=== PATIENT | female | born 1950 | race Caucasian/White ===

== ENCOUNTER 2022-06-29 12:55 | Outpatient (RCR) | payer MEDICARE, BC, SELFPAY | END 2022-07-06 10:29 | disposition home or self-care (01) | PROVIDERS: PCP Nurse Practitioner Family; Visit Provider Orthopaedic Surgery | DX: M16.11 Unilateral primary osteoarthritis, right hip (principal); M25.551 Pain in right hip; M25.651 Stiffness of right hip, not elsewhere classified; Z51.89 Encounter for other specified aftercare | CPT/HCPCS: 97110; 97162; 97535 ==

== ENCOUNTER 2022-07-15 13:20 | Outpatient (CLI) | payer MEDICARE, BC, SELFPAY | END 2022-07-15 13:21 | disposition home or self-care (01) | PROVIDERS: PCP Nurse Practitioner Family; Visit Provider Family Medicine | DX: Z99.3 Dependence on wheelchair (principal) | CPT/HCPCS: A0425; A0428 ==

== ENCOUNTER 2023-05-25 08:26 | Inpatient (IN) | payer MEDICARE, BC, SELFPAY ==
--- NOTE | 2023-05-24 12:12 | PC.SOCIAL ---
Discharge planning: Received call from pt today asking what skilled nursing she can go for short term rehab after her hip surgery scheduled for tomorrow. Pt had already discussed discharge plans and request for placement with delinquency prevention social worker previously. Pt states she wants to go to the [facility] or [facility] and is not interested in any other placement. If unable to go to these two facilities or if not covered by insurance, pt states she will go home and figure it out. Pt is aware delinquency prevention social worker is unable to make a reservation at a facility prior to surgery and will meet with pt following surgery.Pt has also been informed that it is likely she will not meet insurance criteria for coverage for a skilled nursing stay. structural iron worker to follow up as needed.
[2023-05-25] VITALS (19 sets, daily range): BP systolic 98–136; BP diastolic 54–79; PULSE 56–75; RESP 14–18; TEMP 35.4–37.1; O2SAT 85–98; BMI 32.4
[2023-05-25] MEDS: OXYCODONE (CR) 10 MG TAB.ER.12H PO (09:00)
[2023-05-25] MEDS: ACETAMINOPHEN 500 MG TABLET 1000 MG PO ×3 (09:00→20:29)
[2023-05-25] MEDS: CELECOXIB 200 MG CAPSULE PO (09:00)
--- NOTE | 2023-05-25 09:36 | PC.SOCIAL ---
Addendum entered by ISMAEL Lee 05/25/23 17:24: Met with pt and informed her there are no beds at [facility]. Pt states she is interested in placement at [facility] and is aware it will be private pay. Pt states she spoke with someone there who said it would be $5000 for 10 days. Pt is aware [facility] is assessing her information for admission and make a decision tomorrow. Also provided pt with written information on the [facility] option. Pt states she would like to know if both of these can accept her and then decide on placement. Provided pt with written information on the nursing homes in the area with the Department of Health ratings. She is not intersted in any other facilities being contacted regarding availability at this time. wind up worker to follow up as needed. Original Note: Discharge planning: Pt has requesting short term rehab placement at a facility in [place] or [place]. Called [facility] [place] and spoke with Swati in admissions who stated there is no availability for short term rehab. Called [facility] who states they do have availability and would require a $10,000 deposit for private pay with a daily rate estimate of $550/day. Left message for [facility] requesting information on availability. wind up worker to follow up as needed.
[2023-05-25] MEDS: LACTATED RINGERS 1000 ML 1,000 ML 100 ML IV ×2 (09:54→10:40)
[2023-05-25] MEDS: MIDAZOLAM HCL 1 MG/ML inj IVP (10:15)
[2023-05-25] MEDS: fentaNYL 100 MCG/2 ML inj IVP (10:15)
--- NOTE | 2023-05-25 10:23 | SUR.PREOP ---
TIME?OUT:?1012 PT/RN/MDA?VERIFICATION?OF?SURGICAL?SITE,?PROCEDURE,?AND?CONSENT OBTAINED?PRIOR?TO?INVASIVE?PROCEDURE.
--- NOTE | 2023-05-25 10:30 | XR_ITS ---
Patient: MARISSA SPRINGER Facility:?[facility] Patient ID:?[id number] Site Patient ID:?[id number]. Site :?[id number] Study:?XRay-Hip Left 2V-05/25/2023 12:08:32 PM Ordering Physician:VALENTÍN Final Report: Indication: Left hip replacement Technique: Two intraoperative radiographs were obtained of the left hip Comparison: None Findings/impression: Intraoperative radiographs were obtained of the left hip for a left total hip arthroplasty. There is no evidence of hardware related complication. Partially visualized right total hip arthroplasty. Dictated by Noman Gomez MD @ 05/25/2023 4:47:15 PM Signed by:?Noman Gomez MD @05/25/2023 4:47:15 PM (Electronic Signature)
[2023-05-25] MEDS: TRANEXAMIC ACID 100 MG/ML INJ 1000 MG IV (10:40)
[2023-05-25] MEDS: CEFAZOLIN 2 GM INJ IVP (10:40)
--- NOTE | 2023-05-25 10:47 | W.PM.NB ---
Nerve Block Nerve Block Time Seen by Provider: 10:17 Date Seen: 05/25/23 Type of block requested by surgeon for post-operative analgesia: BRIGITTE/LFCN Side: left Time out performed: Yes Verification of patient name: Yes Verification of date of : Yes Site marking: site marked Name of person performing procedure: Huseyin Continuous monitoring Was continuous monitoring of O2 sat, B/P, monitoring analyst, recorded every 15 minutes?: Yes Procedure Checklist: sterile prep, needles and gloves Ultrasound guided. Images saved: Yes Medications given in 5ml increments after negative aspiration: Ropivicaine %: 0.5 mL: 30 Needle gauge: 20 Decadron (mg): 10 Precedex (mcg): 25 Patient tolerated procedure well: Yes Additional comments: Needle noted below psoas tendon needle noted adjacent to LFCN Block Charges Block Charge (with Pro Fee): Other Periph Nerve Block Use of Ultrasound Machine for Block: Yes- US Guidance/pain block
--- NOTE | 2023-05-25 10:48 | W.ANESCHARGE ---
Anesthesia Charges Start Date/Time Anesthesia Start Date: 05/25/23 Anesthesia Start Time: 10:21 Stop Date/Time Anesthesia Stop Date: 05/25/23 Anesthesia Stop Time: 12:44 Summary Extremes of Age - Over 70 or under 1: MDA
--- NOTE | 2023-05-25 11:54 | XR_ITS ---
Patient: MARISSA SPRINGER Facility:?[facility] Patient ID:?[id number] Site Patient ID:?[id number]. Site :?[id number] Study:?XRay-Hip post op-05/25/2023 1:05:35 PM Ordering Physician:VALENTÍN Final Report: Indication: Postoperative examination, left hip Technique: Frontal view of the bilateral hips and lateral view left hip Comparison: Same day intraoperative radiographs Findings/impression: Postsurgical changes of left total hip arthroplasty without evidence of hardware related complication. Expected gas within the operative bed and soft tissues of the left hip and lower extremity. Postsurgical changes of right total hip arthroplasty, unremarkable in appearance. Dictated by Noman Gomez MD @ 05/25/2023 6:01:15 PM Signed by:?Noman Gomez MD @05/25/2023 6:01:15 PM (Electronic Signature)
--- NOTE | 2023-05-25 11:58 | P.ORPRC_ITS ---
Procedure Note Date of procedure: 05/25/23 Procedure: PREOPERATIVE DIAGNOSIS: Left hip osteoarthritis POSTOPERATIVE DIAGNOSIS: Left hip osteoarthritis NAME OF OPERATION: Left total hip arthroplasty SURGEON: Kenneth Travis MD MANAGER SYSTEMS: Nydia Nina PA-C, MEG Fitzgerald IMPLANTS: 1. [employer] [place] # 52 sector ingrowth cup 2. 36 x 52 +4 neutral polyethylene 3. Actis # 5 standard collared ingrowth stem 4. 36 + 1.5 ceramic femoral head ANESTHESIA: General ESTIMATED BLOOD LOSS: 500 cc COMPLICATIONS: None SPECIMENS: None DRAINS: None PREOPERATIVE ANTIBIOTICS: Ancef 2 grams INDICATIONS: The patient is a 72-year-old with a longstanding history of sev ere, unrelenting left hip pain secondary to end-stage left hip osteoarthritis. Despite appropriate nonoperative management, including activity modification, use of an assist device, anti-inflammatories, rave-qcn-[id number] pain medication, physical therapy and injections, they continue to have pain and disability. Operative intervention was offered. The risks, benefits and expected outcomes were discussed in detail. These included but were not limited to: Infection, bleeding, injury to blood vessel or nerve, venous thromboembolism. All questions were answered to their satisfaction. Use of an information services assistant was necessary throughout the case for patient positioning and safety, soft tissue retraction and closure. PROCEDURE: The patient was placed supine on the [place] table. General anesthesia was administered. The information services assistant made sure the patient was properly positioned. The left hip was prepped and draped in the usual sterile fashion. The image intensifier was brought in for a perfect AP pelvis and a perfect double tear drop AP view of each hip which were used for intraoperative templating with our fluoroscopic guide. An oblique incision was made 3 cm distal and 3 cm lateral to the anterior superior iliac spine. The information services assistant retracted the soft tissues to protect them. Subcutaneous dissection was taken with electrocautery to the superficial fascia. The fascia was divided in line with the incision. Blunt dissection was carried medially to the tensor fascia galilea and sartorius interval. Deep dissection was carried with electrocautery. The circumflex vessels were cau terized and divided. The capsule was exposed and then divided in a T-fashion, tagged with #1 Ethibond sutures. Retractors were placed in the joint, held by the information services assistant. The corkscrew was placed in the femoral head. The neck cut was made in the subcapital region. We made a second neck cut more distal. The napkin ring of bone was removed. The femoral head was removed intact. Acetabular retractors were placed, held by the information services assistant. The labrum was sharply debrided. The capsule was released. The 43 mm reamer was used to the true medial wall. We then enlarged in 2 mm increments using the image intensifier for our reamer placement. We impacted the cup which had excellent purchase. We placed the polyethylene. Attention was then turned to the proximal femur. The limb was placed in 140 degrees of external rotation, maximum extension and adduction. A significant amount of time was spent releasing the capsule to allow us to deliver the femur into the wound and complete the femoral side safely. Retractors were held by the information services assistant throughout the femoral preparation. The box printer and canal finder were used. Broaches were used to a stable size. The calcar reamer was used. Trial components were placed. The hip was reduced and was found to be stable with appropriate soft tissue tension. Length and offset had been nicely restored using the image intensifier and our fluoroscopic guide. Trial components were removed. The stem was impacted. We placed the femoral head. Again, the hip was reduced and was found to be stable with appropriate soft tissue tension. Length and offset had been nicely restored. The information services assistant did a three minute dilute Betadine solution soak. The information services assistant irrigated the wound with 3 liters of normal saline via pulse lavage. The as sistant repaired the anterior capsule with a #1 Vicryl and our previously placed Ethibond sutures. The information services assistant closed the fascia over the tensor fascia galilea with a #1 PDO Stratafix, subcutaneous tissues with 2-0 Vicryl, skin with a running 3-0 Stratafix and glue. A dry dressing was applied by the information services assistant. Sponge and needle counts were correct x 2. The patient tolerated the procedure well; there were no apparent complications. They were awakened and extubated in the operating room, sent to the Post-Anesthesia Care Unit in satisfactory condition. PLAN: 1. The patient will be mobilized with physical therapy, weight-bearing as tolerates 2. Xarelto x 5 days then aspirin x 30 days will be used for DVT prophylaxis 3. The patient will be discharged once medically appropriate
--- NOTE | 2023-05-25 12:43 | W.ANESCHARGE ---
Anesthesia Charges Start Date/Time Anesthesia Start Date: 05/25/23 Anesthesia Start Time: 10:21 Stop Date/Time Anesthesia Stop Date: 05/25/23 Anesthesia Stop Time: 12:44
[2023-05-25] MEDS: HYDROmorphone 0.5 mg/0.5 ml inj IVP (14:27)
[2023-05-25] MEDS: OXYCODONE 5 MG TABLET PO (14:27)
--- NOTE | 2023-05-25 15:07 | P.IMCN_ITS ---
Date of Consult Patient: Liudmila Patient Consult date: 05/25/23 Requesting Physician: Orthopedics Primary Care Provider: Amada Pedersen CNP Consult Narrative Narrative: Marcy Cifuentes is a 72 year old female admitted to the hospital for left total hip arthroplasty. Procedure performed today by Dr. Travis. He requests consultation for management of medical problems. There were no operative complications. Estimated blood loss 500 mL. Currently she reports she is having moderate discomfort in her left hip but otherwise feels fine. No nausea or dyspnea. She has a mild sore throat. Had general anesthesia. Preoperatively she reports she is generally doing well. No recent illness or injury. Preop physical did not identify any barbara op medical concerns. July of 2022 she had right hip arthroplasty. She reports this was very difficult for her. She had severe postoperative pain. She also had difficulty with mobility and had 3 weeks in a residential after surgery. She lives at home in a town home that has no stairs. She is and lives alone. She has sleep apnea and brought her home CPAP. Review of Systems Narrative: No other concerns except as noted above. No recent illness or injury [facility] Medical History (Updated 05/25/23 @ 15:35 by Jeremiah Huber MD) Lymphedema, not elsewhere classified ?I89.0 - Lymphedema, not elsewhere classified (ICD-10) Acute pyelonephritis ?N10 - Acute pyelonephritis (ICD-10) Hydronephrosis with urinary obstruction due to ureteral calculus ?N13.2 - Hydronephrosis with renal and ureteral calculous obstruction (ICD- 10) Sepsis syndrome Exudative age-related macular degeneration, left eye, with active choroidal neovascularization ?H35.3221 - Exudative age-related macular degeneration, left eye, with active choroidal neovascularization (ICD-10) Malignant neoplasm of right breast ?C50.911 - Malignant neoplasm of unspecified site of right female breast (ICD-10) Chronic rhinitis ?J31.0 - Chronic rhinitis (ICD-10) Kidney stone ?N20.0 - Calculus of kidney (ICD-10) Essential (primary) hypertension ?I10 - Essential (primary) hypertension (ICD-10) Macular degeneration ?H35.30 - Unspecified macular degeneration (ICD-10) Lymphedema ?I89.0 - Lymphedema, not elsewhere classified (ICD-10) Breast cancer ?C50.919 - Malignant neoplasm of unspecified site of unspecified female breast (ICD-10) Anxiety ?F41.9 - Anxiety disorder, unspecified (ICD-10) Depression ?F32.A - Depression, unspecified (ICD-10) Sleep apnea ?G47.30 - Sleep apnea, unspecified (ICD-10) Surgical History (Updated 05/25/23 @ 15:35 by Jeremiah Huber MD) Hx of lithotripsy ?Z98.890 - Other specified postprocedural states (ICD-10) H/O cataract removal with insertion of prosthetic lens ?Z98.49 - Cataract extraction status, unspecified eye (ICD-10) ?Z96.1 - Presence of intraocular lens (ICD-10) History of right hip replacement (07/14/22) ?Z96.641 - Presence of right artificial hip joint (ICD-10) Hx of dilation and curettage ?Z98.890 - Other specified postprocedural states (ICD-10) Hx of tubal ligation ?Z98.51 - Tubal ligation status (ICD-10) S/P breast lumpectomy (05/12/17) ?Z98.890 - Other specified postprocedural states (ICD-10) S/P right knee arthroscopy (07/11/09) ?Z98.890 - Other specified postprocedural states (ICD-10) Family History Father Stroke Sister Breast cancer Social History Highest level of school completed/degree received: high school graduate Smoking Status: Never smoker Do you use any of these nicotine containing products: None Second hand tobacco smoke exposure: No How often do you have a drink containing alcohol: monthly or less Alcohol type: wine and hard liquor How many standard drinks containing alcohol do you have on a typical day: 1 or 2 How often do you have six or more drinks on one occasion: Never AUDIT-C Alcohol total score: 1 Non-prescribed substance use: denies use Caffeine: No service: No Meds Home Medications and Allergies Home Medications Medication Instructions Recorded Confirmed Type calcium carbonate 500 mg calcium 500 mg PO DAILY 02/05/22 04/05/23 History (1,250 mg) tablet fluticasone propionate 50 2 spray intranasal DAILY 02/05/22 04/05/23 History mcg/actuation nasal spray,suspension multivitamin (Multiple Vitamins 1 tab PO QAM 02/05/22 04/05/23 History tablet) omeprazole 20 mg capsule,delayed 20 mg PO DAILY 02/05/22 04/05/23 History release albuterol sulfate 90 mcg/actuation 2 puff inhalation Q4H PRN wheezing 06/24/22 04/05/23 History aerosol inhaler alprazolam 0.25 mg tablet 0.25 mg PO BID PRN 06/24/22 05/25/23 History citalopram 40 mg tablet 40 mg PO DAILY 06/24/22 05/25/23 History hydrochlorothiazide 25 mg tablet 25 mg PO QDAY PRN 01/13/23 04/05/23 History turmeric root extract 1,053 mg 1,076 mg PO ONCE 01/13/23 04/05/23 History tablet gabapentin 300 mg capsule 300 mg PO QPM 04/05/23 04/05/23 History Allergies Allergy/AdvReac Type Severity Reaction Status Date / Time erythromycin base Allergy Mild Rash Verified 05/25/23 09:55 amoxicillin Allergy Rash Verified 05/25/23 09:55 latex Allergy Rash Verified 05/25/23 09:55 Exam Narrative: Exam Narrative: She is alert and appears in no obvious distress. Eyes normal. Oropharynx with small airway. Neck is supple without mass or adenopathy or tenderness. Respirations are clear to auscultation. No wheezing rales or rhonchi. Cardiovascular: S1, S2, regular rate and rhythm. No murmur gallop or rub. Abdomen: Bowel sounds active. Abdomen is soft without tenderness or mass. Hip incision without obvious bruising swelling or erythema. Extremities with 1+ edema and support hose in place. She moves feet and ankles well bilaterally Const: Vital Signs, click to edit/add: Vital Signs - 24 hr 05/25/23 08:45 05/25/23 12:40 05/25/23 12:45 Temperature 98.8 F 97.9 F Pulse Rate 75 67 68 Respiratory Rate 16 14 16 Blood Pressure 136/67 116/63 116/63 Pulse Oximetry 93 85 L 95 Oxygen Delivery Me thod Room Air Nasal Cannula Non Rebreather Mas k Oxygen Flow Rate 6 10 Fraction of Inspir ed Oxygen 100 100 05/25/23 12:50 05/25/23 12:55 05/25/23 13:00 Temperature Pulse Rate 67 64 64 Respiratory Rate 16 16 16 Blood Pressure 122/79 130/57 L 123/67 Pulse Oximetry 94 97 98 Oxygen Delivery Me thod Non Rebreather Mas k Non Rebreather Mas k Non Rebreather Mas k Oxygen Flow Rate 10 6 4 Fraction of Inspir ed Oxygen 100 100 100 05/25/23 13:05 05/25/23 13:10 05/25/23 13:20 Temperature 98.0 F 95.8 F L Pulse Rate 63 61 59 L Respiratory Rate 14 16 18 Blood Pressure 128/60 125/63 128/63 Pulse Oximetry 94 98 94 Oxygen Delivery Me thod Non Rebreather Mas k Room Air Room Air Oxygen Flow Rate 2 Fraction of Inspir ed Oxygen 100 05/25/23 13:30 05/25/23 13:45 Temperature Pulse Rate 56 L 59 L Respiratory Rate 18 18 Blood Pressure 124/66 126/60 Pulse Oximetry 95 94 Oxygen Delivery Me thod Room Air Room Air Oxygen Flow Rate Fraction of Inspir ed Oxygen Documenting provider has reviewed patient's vital signs: yes Assessment and Plan Assessment and plan (1) Status post total hip replacement, left: Problem comment: 05/25/[address] Travis. No operative complications. Right hip surgery in July of 2022 associated with problems with pain control and immobility requiring snf facility placement. Patient currently planning on snf facility placement Status: Acute (2) Sleep apnea: Problem comment: Home CPAP Status: Acute (3) Lymphedema, not elsewhere classified: Problem comment: Support hose. Status: Acute Plan Patient is admitted to the hospital for left hip replacement and postoperative care. Anticipate routine postoperative care, pain control and rehab. Possible need for snf facility placement for ongoing rehab. Anticipate problems with pain control. Use CPAP for sleep apnea. Total Time Spent Total Time Spent: Total time spent today is 45 minutes, 30 minutes in coordination care and discussing with patient family and other providers ongoing evaluation management
--- NOTE | 2023-05-25 15:33 | PC.NURSE ---
Nursing Care Hours: [id number] Pt arrived from PACU oriented and drowsy. VSS. Pt c/o feeling uncomfortable from hip down bilat. Attempt to reposition with minimal relief. Pt rubbing bilat legs, attempting to move legs around for comfort. Pain meds given PO and IV. Up to chair with PT, tolerated well. Tolerating jello and crackers. CPAP from home in room. IV patent. TEDs on. Bandage CDI, pedal pulses present. Cap refill 5 sec, and digits cool to touch. IS 2000ml.
[2023-05-25] MEDS: CEFAZOLIN 2 GM in 0.9 % SODIUM CHLORIDE Mini-bag 100 ML IVPB (17:28)
--- NOTE | 2023-05-25 18:49 | PC.NURSE ---
End of shift: [id number] The patient is cooperative and pleasant. Dressing is CDI. Lungs clear... the patient reports moderate pain in her hip @ 5/10 consistently. Scheduled Tylenol was given. Up to BR 1x w/ GB and 4 wheeled walker only voided 75 cc. The patient reports that she normally has a poor PO fluid intake. LR infusing @ 75. Plans to go to SNF for rehab. The patient did this with her other hip that got replaced. Call light within reach. Report given to Martha Hearn RN BSN
[2023-05-25] MEDS: GABAPENTIN 300 MG CAPSULE PO (20:29)
[2023-05-25] MEDS: SENNOSIDES 1 TAB TABLET 2 TAB PO (20:29)
[2023-05-26 03:00] VITALS: BP 117/50; PULSE 72; RESP 16; TEMP 36.5; O2SAT 93
[2023-05-26] MEDS: CEFAZOLIN 2 GM in 0.9 % SODIUM CHLORIDE Mini-bag 100 ML IVPB (03:11)
[2023-05-26] MEDS: ACETAMINOPHEN 500 MG TABLET 1000 MG PO ×2 (03:11→10:35)
--- NOTE | 2023-05-26 06:02 | PC.NURSE ---
End of shift [id number]: Alert and oriented. Pain to left hip well managed with current scheduled tylenol and ice pack. Voiding well, IV saline locked at 0300. Transfers and ambulated with SBA, walker and gait belt.
[2023-05-26 06:37] LABS: Basophils Absolute Auto 0.01 K/uL (0.00-0.30); Basophils Percent Auto 0.1 % (0.0-3.0); Eosinophils Absolute Auto 0.02 K/uL (0.00-0.50); Eosinophils Percent Auto 0.2 % (0.0-7.0); Hematocrit 29.3 % (33.0-51.0); Hemoglobin* 9.7 gm/dL (12.0-16.0); Immature Granulocytes Abs Auto 0.05 K/uL (0.00-0.30); Immature Granulocytes Pct Auto 0.5 %; Lymphocytes Percent Auto 10.2 % (20-44); Mean Corpuscular HGB Conc 33 gm/dL (32-36); Mean Corpuscular Hemoglobin 31 pg (26-34); Mean Corpuscular Volume 95 fL (80-100); Platelet Count* 229 K/uL (140-440); RDW Coefficient of Variation % 12.8 % (11.5-15.5); Red Blood Count 3.09 m/uL (4.00-5.20); White Blood Count* 10.53 K/uL (4.50-11.00)
[2023-05-26 06:39] LABS: Slide Review Reflex No
[2023-05-26 07:00] VITALS: BP 106/54; PULSE 65; RESP 16; TEMP 36.5; O2SAT 100
[2023-05-26 07:04] LABS: Potassium* 4.3 mmol/L (3.6-5.1); Sodium* 138 mmol/L (135-149)
[2023-05-26 07:07] LABS: Creatinine* 0.6 mg/dL (0.5-1.5); Est. Creatinine Clearance* 42.62; Estimated Glomerular Filt Rate 94 ml/min
[2023-05-26 07:08] LABS: Blood Urea Nitrogen* 21 mg/dL (7-30)
--- NOTE | 2023-05-26 07:51 | PM.ORPN ---
Subjective Subjective Time Seen by Provider: 07:51 Date Seen: 05/26/23 Principal diagnosis: Status post left hip replacement Interval history: Patient is rather comfortable in the recliner at rest. She denies nausea, vomiting, shortness of breath. She is planning on discharging to [facility] today, social work administrator is working on this. She is planning on staying at [facility] for 10 days. Ortho Exam Narrative Exam Narrative: Alert and oriented x3. Patient is in no acute distress. Converses without labored breathing. Hearing is grossly intact. Ambulates with a walker. Examination of the left hip shows ecchymosis is present. Dressing is clean, dry, intact. No erythema or drainage or sign of infection. Thigh soft. Hip is soft. Bilateral calves are soft and nontender. Pedal pulse, dorsalis pedis is faint. Large foot and ankle. CMS intact left lower extremity. Quad strength tested in supine position in recliner is strong. Good quad activation. Const Vital Signs, click to edit/add: Vital Signs - 24 hr 05/25/23 08:45 05/25/23 12:40 05/25/23 12:45 Temperature 98.8 F 97.9 F Pulse Rate 75 67 68 Pulse Rate [Right Pulse Oximeter] Respiratory Rate 16 14 16 Blood Pressure 136/67 116/63 116/63 Blood Pressure [Left Arm] Pulse Oximetry 93 85 L 95 Oxygen Delivery Method Room Air Nasal Cannula Non Rebreather Mask Oxygen Flow Rate 6 10 Fraction of Inspired Oxygen 100 100 05/25/23 12:50 05/25/23 12:55 05/25/23 13:00 Temperature Pulse Rate 67 64 64 Pulse Rate [Right Pulse Oximeter] Respiratory Rate 16 16 16 Blood Pressure 122/79 130/57 L 123/67 Blood Pressure [Left Arm] Pulse Oximetry 94 97 98 Oxygen Delivery Method Non Rebreather Mask Non Rebreather Mask Non Rebreather Mask Oxygen Flow Rate 10 6 4 Fraction of Inspired Oxygen 100 100 100 05/25/23 13:05 05/25/23 13:10 05/25/23 13:20 Temperature 98.0 F 95.8 F L Pulse Rate 63 61 59 L Pulse Rate [Right Pulse Oximeter] Respiratory Rate 14 16 18 Blood Pressure 128/60 125/63 128/63 Blood Pressure [Left Arm] Pulse Oximetry 94 98 94 Oxygen Delivery Method Non Rebreather Mask Room Air Room Air Oxygen Flow Rate 2 Fraction of Inspired Oxygen 100 05/25/23 13:30 05/25/23 13:45 05/25/23 14:00 Temperature 96.8 F L Pulse Rate 56 L 59 L 64 Pulse Rate [Right Pulse Oximeter] Respiratory Rate 18 18 18 Blood Pressure 124/66 126/60 116/73 Blood Pressure [Left Arm] Pulse Oximetry 95 94 93 Oxygen Delivery Method Room Air Room Air Room Air Oxygen Flow Rate Fraction of Inspired Oxygen 05/25/23 14:15 05/25/23 15:31 05/25/23 16:00 Temperature 98.0 F Pulse Rate 62 65 Pulse Rate [Right Pulse Oximeter] Respiratory Rate 18 16 Blood Pressure 123/71 112/54 L 128/58 L Blood Pressure [Left Arm] Pulse Oximetry 93 93 Oxygen Delivery Method Room Air Oxygen Flow Rate Fraction of Inspired Oxygen 05/25/23 17:00 05/25/23 18:30 05/25/23 19:50 Temperature 98.6 F 98.2 F 98.3 F Pulse Rate 70 74 72 Pulse Rate [Right Pulse Oximeter] Respiratory Rate 16 16 18 Blood Pressure 98/69 115/56 L 118/58 L Blood Pressure [Left Arm] Pulse Oximetry 95 97 97 Oxygen Delivery Method Room Air Oxygen Flow Rate Fraction of Inspired Oxygen 05/25/23 23:00 05/26/23 03:00 05/26/23 07:00 Temperature 98.4 F 97.7 F Pulse Rate Pulse Rate [Right Pulse Oximeter] 68 72 65 Respiratory Rate 18 16 16 Blood Pressure Blood Pressure [Left Arm] 120/56 L 117/50 L Pulse Oximetry 97 93 Oxygen Delivery Method Room Air Room Air Oxygen Flow Rate Fraction of Inspired Oxygen 05/26/23 07:00 Temperature 97.7 F Pulse Rate Pulse Rate [Right Pulse Oximeter] 65 Respiratory Rate 16 Blood Pressure Blood Pressure [Left Arm] 106/54 L Pulse Oximetry 100 Oxygen Delivery Method Room Air Oxygen Flow Rate Fraction of Inspired Oxygen Assessment and Plan Assessment and plan (1) Status post left hip replacement: Problem details: Plan for discharge is today to group home facility, possibly [facility], if they meet discharge criteria. Special Duty Nurse will hear back from [facility] today per social work administrator note. DVT prophylaxis includes Xarelto 10 mg daily for total of 5 days, then aspirin 81 mg twice daily for 30 days, Kuldeep stockings x1 month may remove for 1 hr per day, frequent ambulation Remove dressing 1 week. Observe wound and phone Orthopedics with any questions or concerns Use Ice on operative hip unrestricted. Return to clinic in 2 weeks in [place] with PA for a wound check Return to clinic in 6 weeks with surgeon Minimize narcotic use. Wean off and discontinue soon as possible. Activities as tolerated. No strenuous activity. Attend OT and PT daily at group home facility, then outpt PT Status: Acute
[2023-05-26] MEDS: MULTIVITAMIN/MINERALS 1 TABLET 1 TAB PO (08:34)
[2023-05-26] MEDS: CITALOPRAM HYDROBROMIDE 20 MG TABLET 40 MG PO (08:34)
[2023-05-26] MEDS: RIVAROXABAN 10 MG TABLET PO (08:34)
[2023-05-26] MEDS: OXYCODONE 5 MG TABLET PO ×2 (08:34→11:54)
[2023-05-26] MEDS: OMEPRAZOLE 20 MG CAPSULE DR PO (08:34)
[2023-05-26] MEDS: SENNOSIDES 1 TAB TABLET 2 TAB PO (08:34)
[2023-05-26] MEDS: CALCIUM CARBONATE 500 MG TABLET PO (08:35)
--- NOTE | 2023-05-26 10:14 | P.IMPN_ITS ---
Progress Note: A&P Assessment and plan (1) Status post left hip replacement: Problem details: 05/25/[address] Travis. Plan for discharge is today to long-term facility, possibly [facility]. DVT prophylaxis includes Xarelto 10 mg daily for total of 5 days, then aspirin 81 mg twice daily for 30 days, Kuldeep stockings x1 month may remove for 1 hr per day, frequent ambulation Remove dressing 1 week. Observe wound and phone Orthopedics with any questions or concerns Use Ice on operative hip unrestricted. Return to clinic in 2 weeks in [place] with PA for a wound check Return to clinic in 6 weeks with surgeon Minimize narcotic use. Wean off and discontinue soon as possible. Activities as tolerated. No strenuous activity. Attend OT and PT daily at long-term facility, then outpt PT Status: Acute (2) Essential (primary) hypertension: Problem details: - patient on HCTZ as an outpatient, holding this given mild postoperative hypotension, will restart upon discharge with hold perameters. Status: Chronic Subjective Time Seen by Provider: 09:25 Date Seen: 05/26/23 Interval history: Marcy states the block for her left hip this time worked better than the block for her right hip last time. She says it's already worn off, but her pain is okay at present. She is hoping to go to SNF for rehab. Exam Narrative: Exam Narrative: General: No acute distress. Awake, alert, oriented x3. No pallor. No jaundice. Oropharynx: Clear. Mucous membranes moist. Cardiovascular: Regular rate and rhythm. No murmurs, gallops, or rubs. Respiratory: Clear to auscultation bilaterally. No wheezes or crackles. Extremities: Left hip bandage is clean, dry, and intact. Const: Vital Signs, click to edit/add: Vital Signs - 24 hr 05/25/23 12:40 05/25/23 12:45 05/25/23 12:50 Temperature 97.9 F Pulse Rate 67 68 67 Pulse Rate [Right Pulse Oximeter] Respiratory Rate 14 16 16 Blood Pressure 116/63 116/63 122/79 Blood Pressure [Le ft Arm] Pulse Oximetry 85 L 95 94 Oxygen Delivery Me thod Nasal Cannula Non Rebreather Mas k Non Rebreather Mas k Oxygen Flow Rate 6 10 10 Fraction of Inspir ed Oxygen 100 100 100 05/25/23 12:55 05/25/23 13:00 05/25/23 13:05 Temperature Pulse Rate 64 64 63 Pulse Rate [Right Pulse Oximeter] Respiratory Rate 16 16 14 Blood Pressure 130/57 L 123/67 128/60 Blood Pressure [Le ft Arm] Pulse Oximetry 97 98 94 Oxygen Delivery Me thod Non Rebreather Mas k Non Rebreather Mas k Non Rebreather Mas k Oxygen Flow Rate 6 4 2 Fraction of Inspir ed Oxygen 100 100 100 05/25/23 13:10 05/25/23 13:20 05/25/23 13:30 Temperature 98.0 F 95.8 F L Pulse Rate 61 59 L 56 L Pulse Rate [Right Pulse Oximeter] Respiratory Rate 16 18 18 Blood Pressure 125/63 128/63 124/66 Blood Pressure [Le ft Arm] Pulse Oximetry 98 94 95 Oxygen Delivery Me thod Room Air Room Air Room Air Oxygen Flow Rate Fraction of Inspir ed Oxygen 05/25/23 13:45 05/25/23 14:00 05/25/23 14:15 Temperature 96.8 F L Pulse Rate 59 L 64 Pulse Rate [Right Pulse Oximeter] Respiratory Rate 18 18 Blood Pressure 126/60 116/73 123/71 Blood Pressure [Le ft Arm] Pulse Oximetry 94 93 Oxygen Delivery Me thod Room Air Room Air Oxygen Flow Rate Fraction of Inspir ed Oxygen 05/25/23 15:31 05/25/23 16:00 05/25/23 17:00 Temperature 98.0 F 98.6 F Pulse Rate 62 65 70 Pulse Rate [Right Pulse Oximeter] Respiratory Rate 18 16 16 Blood Pressure 112/54 L 128/58 L 98/69 Blood Pressure [Le ft Arm] Pulse Oximetry 93 93 95 Oxygen Delivery Me thod Room Air Oxygen Flow Rate Fraction of Inspir ed Oxygen 05/25/23 18:30 05/25/23 19:50 05/25/23 23:00 Temperature 98.2 F 98.3 F 98.4 F Pulse Rate 74 72 Pulse Rate [Right Pulse Oximeter] 68 Respiratory Rate 16 18 18 Blood Pressure 115/56 L 118/58 L Blood Pressure [Le ft Arm] 120/56 L Pulse Oximetry 97 97 97 Oxygen Delivery Me thod Room Air Room Air Oxygen Flow Rate Fraction of Inspir ed Oxygen 05/26/23 03:00 05/26/23 07:00 05/26/23 07:00 Temperature 97.7 F 97.7 F Pulse Rate Pulse Rate [Right Pulse Oximeter] 72 65 65 Respiratory Rate 16 16 16 Blood Pressure Blood Pressure [Le ft Arm] 117/50 L 106/54 L Pulse Oximetry 93 100 Oxygen Delivery Me thod Room Air Room Air Oxygen Flow Rate Fraction of Inspir ed Oxygen Labs Labs: Laboratory Results - last 24 hr 05/25/23 05/26/23 09:24 06:10 WBC 10.53 RBC 3.09 L Hgb 9.7 L Hct 29.3 L MCV 95 MCH 31 MCHC 33 RDW Coeff of Felipa 12.8 Plt Count 229 Neut % (Auto) 82.0 H Lymph % (Auto) 10.2 L [place] % (Auto) 7.0 Eos % (Auto) 0.2 Baso % (Auto) 0.1 Neut # (Auto) 8.60 H Lymph # (Auto) 1.10 [place] # (Auto) 0.70 Eos # (Auto) 0.02 Baso # (Auto) 0.01 Abs Immat Gran (auto) 0.05 Imm/Tot Granulo (auto) 0.5 Sodium 138 Potassium 4.3 BUN 21 Creatinine 0.6 Estimated Creat Clear 42.62 Estimated GFR 94 Blood Type O Positive Antibody Screen NEGATIVE
--- NOTE | 2023-05-26 11:54 | PC.SOCIAL ---
Late Entry: Received call that pt was accepted for admit today to [facility] shared room for short term rehab private pay. Met with pt and family member who spoke with admissions staff at [facility] and then agreed with this plan. Pt's family member will transport her to facility at noon today. PAS completed and submitted PAS#[id number]. Discharge orders sent to facility in advance of pt arriving and confirmed with facility that they have all needed information.
--- NOTE | 2023-05-26 12:37 | PC.NURSE ---
Discharge: patient discharged to [facility] for a short term rehab stay accompanied by sister in law at 1215. Patient is alert and oriented tolerating a reg. diet. Patient rates pain 5/10 PRN oxy and tylenol administered w/relief. Patient's dressing to left hip C/D/I. Patients IV removed intact. Discharge paperwork signed and copies sent with patient. Patient's belongings sheet signed and patient verbalized understanding of instructions.
== END 2023-05-26 12:15 | DRG 470 ==
PROVIDERS: Admitting Provider Orthopaedic Surgery; PCP Nurse Practitioner Family; Visit Provider Orthopaedic Surgery
PROC: 0SRB04Z Replacement of Left Hip Joint with Ceramic on Polyethylene Synthetic Substitute, Open Approach (ICD-10-PCS; CPT 27130; principal; 2023-05-25 10:30)
DX: M16.12 Unilateral primary osteoarthritis, left hip (principal); G89.18 Other acute postprocedural pain; G47.33 Obstructive sleep apnea (adult) (pediatric); Z99.89 Dependence on other enabling machines and devices; I89.0 Lymphedema, not elsewhere classified; Z96.642 Presence of left artificial hip joint; I10 Essential (primary) hypertension
CPT/HCPCS: 01214; 36415; 64450; 73501; 76000; 76942; 82565; 84132; 84295; 84520; 85025; 86850; 86900; 86901; 97110; 97116; 97161; 97165; 97530; 97535; 99100; A9153; A9270; C1776; J0330; J0690; J1100; J1170; J2250; J2405; J2704; J2710; J3010; J3475; J3490; J7120

== ENCOUNTER 2023-08-17 14:15 | Outpatient (RCR) | payer MEDICARE, BC, SELFPAY ==
--- NOTE | 2023-07-28 18:17 | OT.OPLE2 ---
OT Outpatient Lymphedema Eval* OT Outpatient Lymphedema Eval* Start: 07/27/23 19:11 Freq: Status: Active Protocol: Document 07/28/23 12:00 AMB (Rec: 07/27/23 19:32 AMB Desktop) E-signed By Katelynn Adkins, OTR/L, CLT, [employer] DIRECTOR OT Outpatient Evaluation Details Type Type Eval Complexity Medium Insurance Information Insurance Information Insurance Information Medicare B OT OP Lymphedema Evaluation Current Condition/Medical Diagnosis Referring Provider Nydia Arana PA-C Medical Contraindications Depression,Arthritis Medical History Medical History Cancer Treatment/Surgery, Depression,Obesity,Renal Disease,HTN,Radiation,Chemo, Arthritis,Sleep Apnea Medical History Comments Pt had breast cancer in the right breast in 2016, pt had a lumpectomy with 1LN removed, 15 XRT treatments, she did not have chemo. Pt recently had a steroid injection in her RUE shoulder (07/23/23) PMH: (copied from her medical chart) Active Problems (Updated 07/22 @ 12:34 by Nydia Nina PA-C) Status post left hip replacement (Acute 05/25/23) MARCUS-AA (05/25/2023, Dr. Travis) Z96.642 - Presence of left artificial hip joint (ICD-10) Lymphedema, not elsewhere classified (Acute) Support hose. I89.0 - Lymphedema, not elsewhere classified (ICD-10) Sleep apnea (Chronic) Home CPAP G47.30 - Sleep apnea, unspecified (ICD-10) Strain of flexor muscle of right hip (Acute) S76.011A - Strain of muscle, fascia and tendon of right hip , initial encounter (ICD-10) History of right hip replacement (Acute 07/14/22) Dr. Travis, 07/14/2022 Z96.641 - Presence of right artificial hip joint (ICD-10) Essential (primary) hypertension (Chronic) - patient on HCTZ as an outpatient, holding this given mild postoperative hypotension, will restart upon discharge with hold perameters. I10 - Essential (primary) hypertension (ICD-10) Osteoarthritis of right shoulder (Acute) M19.011 - Primary osteoarthritis, right shoulder (ICD-10) Osteoarthritis of left shoulder (Acute) M19.012 - Primary osteoarthritis, left shoulder (ICD-10) Medical History (Reviewed 10/29 @ 14:03 by Carmelina Schneider) Lymphedema, not elsewhere classified I89.0 - Lymphedema, not elsewhere classified (ICD-10) Acute pyelonephritis N10 - Acute pyelonephritis ( ICD-10) Hydronephrosis with urinary obstruction due to ureteral calculus N13.2 - Hydronephrosis with renal and ureteral calculous obstruction (ICD-10) Sepsis syndrome Exudative age-related macular degeneration, left eye, with active choroidal neovascularization H35.3221 - Exudative age- related macular degeneration, left eye, with active choroidal neovascularization ( ICD-10) Malignant neoplasm of right breast C50.911 - Malignant neoplasm of unspecified site of right female breast (ICD-10) Chronic rhinitis J31.0 - Chronic rhinitis (ICD- 10) Kidney stone N20.0 - Calculus of kidney ( ICD-10) Essential (primary) hypertension I10 - Essential (primary) hypertension (ICD-10) Macular degeneration H35.30 - Unspecified macular degeneration (ICD-10) Lymphedema I89.0 - Lymphedema, not elsewhere classified (ICD-10) Breast cancer C50.919 - Malignant neoplasm of unspecified site of unspecified female breast (ICD -10) Anxiety F41.9 - Anxiety disorder, unspecified (ICD-10) Depression F32.A - Depression, unspecified (ICD-10) Sleep apnea G47.30 - Sleep apnea, unspecified (ICD-10) Surgical History Surgical History Copied from Medical Chart: Surgical History (Reviewed 10/29 @ 14:03 by Carmelina Schneider) Status post left hip replacement (05/25/23) Z96.642 - Presence of left artificial hip joint (ICD-10) Hx of lithotripsy Z98.890 - Other specified postprocedural states (ICD-10) H/O cataract removal with insertion of prosthetic lens Z98.49 - Cataract extraction status, unspecified eye (ICD- 10) Z96.1 - Presence of intraocular lens (ICD-10) History of right hip replacement (07/14/22) Z96.641 - Presence of right artificial hip joint (ICD-10) Hx of dilation and curettage Z98.890 - Other specified postprocedural states (ICD-10) Hx of tubal ligation Z98.51 - Tubal ligation status (ICD-10) S/P breast lumpectomy () Z98.890 - Other specified postprocedural states (ICD-10) S/P right knee arthroscopy () Z98.890 - Other specified postprocedural states (ICD-10) Medications Medications (copied from medical chart): acetaminophen 500 - 1,000 mg ( 1 - 2 x 500 mg) PO Q6H PRN MDD 4000mg per day albuterol sulfate 90 mcg/ actuation 2 puffs inhalation Q4H PRN alprazolam 0.25 mg PO BID PRN aspirin (Aspirin Childrens) 81 mg PO BID 30 days calcium carbonate 500 mg PO DAILY citalopram 40 mg PO DAILY fluticasone propionate 50 mcg/ actuation 2 sprays intranasal DAILY gabapentin 300 mg PO QPM hydrochlorothiazide 25 mg PO QDAY PRN multivitamin (Multiple Vitamins tablet) 1 tab PO QAM omeprazole 20 mg PO DAILY sennosides (Senna Lax) 17.2 mg (2 x 8.6 mg) PO BID PRN turmeric root extract 1,076 mg PO ONCE Current Work Status Current Work Status Retired Subjective Subjective Pt states she was diagnosed with lymphedema right after her breast cancer surgery / XRT in 2015, does not remember that her arm was ever terribly swollen, never had to use wraps, just got a sleeve. Pt states she inconsistently wears her sleeve and has never replaced her original sleeve. Pt states she's been having pain in her right axilla for several months, not sure what is causing it, wonders if it is from her lymphedema. Pt states it feels better if she massages it. Pt has a long standing hx of right shoulder pain, weakness and severe limitations in ROM secondary to advance OA, she receives periodic steroid injections and ambulatory care coordinator for this . Pt is not wanting any surgery for this, states I can pretty much do everything I need to with it, I just can' t raise it above my head or reach too far. Living Situation Current Living Situation Private Home/Apartment (Alone) Current Living Situation Comments Pt lives alone, in 2019. Patient Difficulties Patient Difficulties Comments Pt states she's not really limited but is concerned about the pain she has in her arm pit. Problem List Problem List Limited Knowledge of Lymphedema Treatment/Condition /Precautions,Limited Knowledge of Skin Care & Infection Precautions,Significant Risk For Infection For Lymphedema Related Complications,Does Not Have a HEP,Does Not Know How To Bandage For Limb Reduction, Does Not Have Appropriate Compression Garments For LT Management Exercise History Does Patient Exercise Regularly No Exercise Comments Pt states she has not been exercising regularly due to her left hip pain, which was replaced in May of this year . Pain Pain Yes Pain Comments Pt states she frequently has pain in her arm pit on the right, feels it is from her lymphedema as it goes away when she massages, pt also has pain in her upper arm, she is not sure if this is due to her arthritic shoulder or lymphedema. ROM/Strength ROM/Strength Comments Pt has AROM WFL in BUE with the exception of her right shoulder. AROM of the RUE shoulder flexion is 80, abd is 70, ER is 40, IR is 40 Previous Treatment Previous Treatment For Swelling/ Compression Garment,Self Lymphedema Massage Previous Treatment/Current Home Program Pt states she does not have a home exercise program, just does massaging for her swelling. Compression History Does Patient Currently Wear Compression No During Daytime Compression During Daytime Comments Pt has a compression sleeve ( no glove or gauntlet), states she has not worn for approximately a month, no sure why she stopped wearing it. Pt received her sleeve from [employer] in 2016, has not replace it. Pt wears a bra from [employer] as well. Pt states she gets new bras about one time per year. Does Patient Currently Wear Compression No At Night Compression At Night Comments Pt never had a nighttime garment. Current Swelling (Location/Pitting/Texture) Pitting Scale: 0 = No pitting 1+ Tissue returns to normal almost immediately 2+ Tissue returns after 15-30 seconds 3+ Tissue returns after 1-1/2 minutes 4+ Tissue returns after 2-3 minutes N/A Tissue no longer pits due to induration Tissue texture: Soft or indurated Clinical Presentation Area RUE arm. Triggering Event & Start Date of Breast cancer surgery with Swelling/Lymphedema lumpectomy with [address] removed and 15 XRT treatments in 2016. Positive Stemmer's Sign No Capillary Refill Brisk Swelling Comments Observable swelling is not present in the clinic today, however, pt does verbalize sxs of lymphedema including swelling that comes and goes and a heavy sensation in her arm. Most concern is the pain she is having in her axilla. 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 Type of Swelling Post Surgery/Traumatic Edema Staging Staging Stage 0 Circumferential Measurements Upper Extremity Left Upper Extremity MCP (in cm) 18.7 Palm (in cm) 19.5 Smallest Wrist Measurement (in cm) 16.7 10 cm Above Smallest Wrist Measurement 20.4 20 cm Above Smallest Wrist Measurement 26.0 30 cm Above Smallest Wrist Measurement 31.8 40 cm Above Smallest Wrist Measurement 34.5 50 cm Above Smallest Wrist Measurement 34.5 Total Girth in cm 202.1 UE Volume C 274.73 UE Volume D 430.39 UE Volume E 666.87 UE Volume F 874.97 UE Volume G 947.17 Upper Extremity Volume Total in cm 3,194.13 Right Upper Extremity MCP (in cm) 18.5 Palm (in cm) 19.6 Smallest Wrist Measurement (in cm) 16.8 10 cm Above Smallest Wrist Measurement 20.2 20 cm Above Smallest Wrist Measurement 26.0 30 cm Above Smallest Wrist Measurement 34.1 40 cm Above Smallest Wrist Measurement 32.4 50 cm Above Smallest Wrist Measurement 35.6 Total Girth in cm 203.2 UE Volume C 273.12 UE Volume D 426.86 UE Volume E 722.93 UE Volume F 879.97 UE Volume G 920.59 Upper Extremity Volume Total in cm 3,223.47 Assessment Assessment Pt presents to OT with complaints of pain in her right axilla, no constant, denies paresthesia. Pt is extremely tender with palpation of the incisional scar in this area from LN retrieval during her lumpectomy which occurred in 2015, the incisional scar on her breast is not tender. No obvious swelling is present in her axilla, no significant swelling in her right arm noted today either. Pt is likely experiencing myofascial pain due to deep scarring following LN removal and 15 treatments of XRT in this area . These restrictions put pt at risk for further complications of her lymphedema in this extremity. Pt will benefit from skilled OT intervention to address RUE axillary pain and myofascial restrictions in order to decrease risk for further advancement of her lymphedema in the RUE. Pt will also benefit from establishing a home program for LT self management of her RUE lymphedema and new compression garments. Patient Goals Patient Goals To get rid of the pain in my arm pit Short Term Goals (# of Weeks) 6 Click To Default Short Term Goals Standard Goals Short Term Goals 1. Patient and or caregiver will understand lymphedema precautions to decrease risk of infection and further lymphedema related complications 2. Patient will consistently perform HEP in order to improve lymphatic flow and venous return 3. Patient will perform self MLD protocol with minimal assistance to help reduce swelling and improve ROM and mobility Crab Steamer Goals (# of Weeks) 10 Snf Goals 1. Pt will no longer complain of RUE axillary pain indicating a resolution of myofascial restrictions and improved lymphatic flow to decrease risk for further lymphedema related complications. 2. Pt will obtain new compression garment for her RUE for prison self management of her lymphedema. Treatment Plan Treatment Plan Edema Control,Manual Therapy, Wound Care/Scar Management, Therapeutic Exercise, Therapeutic Activities,Self- Care/Home Management,Education Expected Frequency 1x Week Expected Duration 8-10 Weeks Certification Certification Statement I Certify That: Therapy Services Provided, Therapy Plan Established, Therapy Plan Reviewed Certification Information Clinic ID # [id number] Initial Certification Date 07/28/23 Recertification Due Date 10/26/23 Provider Signature Shows Agreement With POC & Medical Necessity Physician Comment/Change Comment or Changes Physician NPI Number #
== END 2023-12-15 23:59 | disposition home or self-care (01) ==
PROVIDERS: PCP Nurse Practitioner Family; Visit Provider Physician Assistant
DX: I89.0 Lymphedema, not elsewhere classified (principal); Z85.3 Personal history of malignant neoplasm of breast; Z51.89 Encounter for other specified aftercare
CPT/HCPCS: 97140; 97166; 97535

== ENCOUNTER 2023-12-09 06:03 | Day surgery (SDC) | payer MEDICARE, BC, SELFPAY ==
[2023-12-09] VITALS (16 sets, daily range): BP systolic 96–155; BP diastolic 45–73; PULSE 69–78; RESP 12–20; TEMP 36.2–36.5; O2SAT 91–97; BMI 32.9
--- OUTSIDE RECORDS SUMMARY | 2023-12-09 06:07 | XMS_ITS | Data Portability ---
Author Organization [place] [facility] [place] [facility], [facility] Address [address] [place] [address] Care Team Providers Care Gold Beater Name Role Phone [facility] Primary Care Provider Assessment No assessment recorded. Plan of Treatment Reminders Order Date Submit Date Provider Last Modified By Organization Details Last Modified Time Details Appointments None recorded . Lab None recorded . Referral None recorded . Procedures None recorded . Surgeries None recorded . Imaging US, kidney - Eval for stones/h ydro (02/2023 ) / please call pt to schedule : 023 12/17/19 [email or web address] 1 [facility], [address] , [place], [address], 3 15:18:36 Medication Orders None recorded . Patient TargetsNo targets recorded. Patient Instructions Encounter Date Encounter Id Patient Instructions Last Modified By Organization Details Last Modified Time 12/16/2022 [id number] Stent removed in office today. They tolerated the procedure well. We discussed that ureteral spasm may occur following stent removal and this typically happens within the next several hours. We then discussed concerning signs such as persistent and unremitting pain, persistent nausea/vomiting, or fevers >100.4F. If these do occur, this would be reasons to present to the Emergency Room for evaluation calli Not available 12/16/2022 12:49:26 72 yo F s/p left URS with LL and stone removal on 12/09/22 here for stent removal - Discussed risks of cystoscopy including infection/sepsis, bleeding, and discomfort. - Stent removed without difficulty We discussed general fluid and dietary guidelines to help prevent further stone formation includin.)??Fluid??consump tion??of??preferabl y??water??to??make? ?at??least??2.5??L/ day??of??urine 2.)??Low??sodium??c onsumption??(less?? than??2,300mg/day). ??Dietary??salt??in take??is??linked??t o??calcium??excreti on. 3.)??Moderate??calc ium??consumption??( up??to??1,000??to?? 1,200mg/day).??Avoi d??calcium??restric tion??-??this??has? ?been??shown??to??i ncrease??the??risk? ?of??stone??formati on 4.)??Low??fat??and? ?moderate??animal?? protein??consumptio n??(meats,??fish,?? poultry,??eggs)??wi th??increased??inta ke??of??fruits??and ??vegetables 5.)??Limit??consump tion??of??oxalate?? rich??foods??- spinach, Ukrainian chard,??tea,??asha late,??dark mari, tree nuts,??strawberries , rhubarb, and to avoid excess vitamin C intake 6.) 1 oz of lemon juice daily for citrate supplementation Return in 2-3 months with RONA [email or web address] Not available 12/16/2022 12:50:07 Reason for Referral None Reported. Problems Name Problem SNOMED Code Status Onset Date Resolution Date Notes Provider Name and Address Organization Details Recorded Time Kidney stone 18111054 Active Jimmy valverde [facility] 12/16/2022 12:31:06 Problem Notes None recorded. Procedures Surgical History Date Name Laterality Status Provider Name and Address Organization Details Recorded Time 3 DT Stent Removal completed ELLIOTT ESTES MD [address] [facility],[address], [place], [address], [facility] 12/16/2022 12:48:20 Imaging Results None recorded. Procedure Notes None recorded. Medical Equipment None Reported. Medications Name Sig Start Date Stop Date Status Note LastModified by Organization Details LastModified Time cyclobenzap rine 10 mg tablet TAKE ONE TABLET BY MOUTH TWICE A DAY NEEDED FOR MUSCLE SPASM 12/16 completed Not Available Not Available Not Available fluticasone 250 mcg-salmete rol 50 mcg/dose blistr powdr for inhalation Inhale 1 puff twice a day by inhalatio n route as needed. active Not Available Not Available No t Available citalopram 40 mg tablet TAKE ONE TABLET BY MOUTH EVERY DAY . active Not Available Not Available No t Available fluconazole 150 mg tablet TAKE 1 TABLET BY MOUTH ONCE FOR 1 DOSE, MAY REPEAT IN 72 HOURS IF NEEDED 12/16 completed Not Available Not Available Not Available cefadroxil 500 mg capsule TAKE TWO CAPSULES BY MOUTH TWICE A DAY FOR 7 DAYS 12/16 completed Not Available Not Available Not Available alprazolam 0.25 mg tablet TAKE ONE TABLET BY MOUTH EVERY DAY NEEDED FOR ANXIETY active Not Available Not Available No t Available tamsulosin 0.4 mg capsule 12/16 completed Not Available Not Available Not Available benzonatate 100 mg capsule TAKE ONE CAPSULE BY MOUTH THREE TIMES A DAY NEEDED FOR COUGH 12/16 completed Not Available Not Available Not Available cephalexin 500 mg capsule TAKE ONE CAPSULE BY MOUTH TWICE A DAY 12/16 completed Not Available Not Available Not Available omeprazole 20 mg capsule,del ayed release TAKE ONE CAPSULE BY MOUTH EVERY DAY BEFORE A MEAL . active Not Available Not Available No t Available Tylenol 325 mg tablet Take 2 tablets every 6 hours by oral route. active Not Available Not Available No t Available diclofenac sodium 75 mg tablet,bryant yed release TAKE ONE TABLET BY MOUTH TWICE A DAY WITH MEALS 12/16 completed Not Available Not Available Not Available hydrochloro thiazide 25 mg tablet TAKE ONE TABLET BY MOUTH EVERY DAY 12/16 completed Not Available Not Available Not Available letrozole 2.5 mg tablet TAKE ONE TABLET BY MOUTH EVERY DAY 12/16 completed Not Available Not Available Not Available methylpredn isolone 4 mg tablets in a dose pack TAKE BY MOUTH INSTRUCTE D PER PACKAGING --THIS IS A STEROID FOR YOUR BACK PAIN, TAKE EXACTLY PRESCRIBE D 12/16 completed Not Available Not Available Not Available albuterol sulfate HFA 90 mcg/actuati on aerosol inhaler INHALE TWO PUFFS BY MOUTH EVERY 4 HOURS IF NEEDED FOR WHEEZING 12/16 completed Not Available Not Available Not Available cefdinir 300 mg capsule TAKE ONE CAPSULE BY MOUTH EVERY 12 HOURS FOR 7 DAYS 12/16 completed Not Available Not Available Not Available oxycodone 5 mg tablet TAKE ONE TABLET BY MOUTH EVERY 8 HOURS NEEDED FOR PAIN 12/16 completed Not Available Not Available Not Available potassium chloride ER 10 mEq tablet,exte nded release(par t/cryst) 12/16 completed Not Available Not Available Not Available Centrum Silver active Not Available Not Available Not Available PreserVisio n AREDS active Not Available Not Available Not Available Xarelto 10 mg tablet TAKE ONE TABLET BY MOUTH EVERY DAY FOR 4 DAYS THEN TAKE ASPIRIN 81MG FOR 30 DAYS FOR DVT PROPHYLAX IS 12/16 completed Not Available Not Available Not Available Vitals None Recorded Social History Question Answer Notes LastModified by Organizat ion Details LastModified Time What Is Your Level Of Alcohol Consumption? None [email or web address] Information not available 12/16/2022 What Is Your Level Of Caffeine Consumption? Occasional [email or web address] Information not available 12/16/2022 Race Unknown [email or web address] Information no t available 12/16/2022 Preferred Language Kyrgyz [email or web address] Inform ation not available 12/16/2022 What Was The Date Of Your Most Recent Tobacco Screening? 12/16/2022 [email or web address] Information not available 12/16/2022 What Is Your Relationship Status? Unknown [email or web address] Information not available 12/16/2022 Sex: Unknown Functional Status None recorded. Mental Status None recorded. Family History Nothing Reported. Medical History Condition Response Other N High Blood Pressure N Kidney Stones Y Lung Disease N Depression N GERD/Acid Reflux N Sexually Transmitted Infection N Cancer N High Cholesterol N Diabetes N Bleeding Disorder N Heart Disease N Gynecological HistoryNo gynecological history recorded. Obstetrics History GPAL:G 0 P 0 0 0 0 Immunizations Vaccine Type Date Status Provider Name and Address Organization Details Recorded Time Influenza, adjuvanted, quadrivalent, PF 12/15/2020 completed Jimmy valverde [facility] 12/16/2022 12:44:11 COVID-19, mRNA, LNP-S, PF, 30 mcg/0.3 mL dose 05/11/2020 completed Jimmy valverde, [facility] 12/16/2022 12:44:11 COVID-19, mRNA, LNP-S, PF, 30 mcg/0.3 mL dose 06/01/2020 completed Jimmylisbet Almonte null, [facility] 12/16/2022 12:44:11 COVID-19, mRNA, LNP-S, PF, 30 mcg/0.3 mL dose 12/09/2020 completed Jimmy valverde, [facility] 12/16/2022 12:44:11 COVID-19, mRNA, LNP-S, bivalent, PF, 30 mcg/0.3 mL dose 02/05/2022 completed Jimmy valverde [facility] 12/16/2022 12:44:11 [facility]13[facility]2019 [facility] 12/16/2022 12:44:11 Td (adult), 5 Lf tetanus toxoid, preservative free, adsorbed 10/29/2006 completed Jimmy valverde [facility] 12/16/2022 12:44:11 Influenza, split virus, quadrivalent, PF 02/17/2018 [facility] 12/16/2022 12:44:11 Past Encounters Encounter ID Performer Location Encounter Start Date Encounter Closed Date Diagnosis/Indication Diagnosis SNOMED-CT Code Diagnosis ICD10 Code [id number] ELLIOTT ESTES MD [facility] [address] [address] 12/16/2022 12:13:02 12/16/2022 13:04:43 Kidney stone 39850666 N20.0 Health Concerns Section Related Observation LastModified by Organization Detai ls LastModified Time None Recorded Concern Status LastModified by Organization Details LastModified Time None Recorded Advance Directives Directive None Recorded Payers Encounter Date Sequence Insurance Name Policy Number Policy Bishop Covered Member ID Bishop Member ID Guarantor Name 12/16/2022 1 [employer] [employer] - MEDICARE COST [id number] Marcy Cifuentes [id number] Marcy Cifuentes Notes Date Note Type Note Provider Name and Address Organization Details Recorded Time 12/16/2022 text/html HPI Notes: 72 yo F with kidney stones s/p left stent placement on 11/15 and definitive URS on 12/09/22 here for stent removal. She presented with obstructive pyelo and urine culture grew Klebsiella. Was stented on 11/15/22. Underwent definitive stone treatment with me on 12/09/22. Here for stent removal. CaOx stones (70% mono and 30% di). This was her first stone. Having frequency and pressure with the stent in place. ELLIOTT ESTES MD [address] [place] [address],[address], [place], [address], [facility] 12/16/2022 12:51:01 OBGyn Episode No OBEpisode recorded.
--- OUTSIDE RECORDS SUMMARY | 2023-12-09 06:07 | XMS_ITS | Clinical Summary ---
Author Organization [facility] Address [place], [place] [address] Care Team Providers Care Brickmason Helper Name Role Phone Amada Pedersen NP Primary Care Provider María Cavanaugh MD Unavailable Dana Munguia NP Unavailable Allergies Active Allergy Reactions Criticality Noted Date Comments Amoxicillin-Pot Clavulanate Rash 05/26/19 07 Erythromycin GI Upset 05/25/2006 Latex Rash Medium 11/15/2022 Medications Medication Sig Dispensed Refills Start Date End Date Status Calcium carbonate (OYSTERSHELL CALCIUM) 500 mg tablet Take 1 tablet by mouth 2 times daily with meals. 0 02/09/2012 Active fluticasone (50 mcg per actuation) nasal solution (FLONASE) Inhale 2 Sprays to both nostrils once daily if needed (Allergy symptoms). 1 Bottle 04/05/2018 Active cholecalciferol (VITAMIN D3) 1,000 unit tablet Take 1,000 units by mouth once daily. 0 04/13/2018 Active CPAPIndications:OS A (obstructive sleep apnea) CPAP machine for home use at pressure: 5-16 cmw , Heated humidifier x 1 q 5 yr, Humidifier chamber x 1 q 6 mo, Full face mask x1 q 3mos, with cushion x 1 q mo, Heated tubing x 1 q 3 mo, Headgear x 1 q 6 mo, Filters: Disposable x 2 q mo non-disposable filters x1 q 6mo, Length of Need: 99 months, Frequency of use: Daily 1 Device 11 01/23/2020 Active albuterol HFA (Ventolin HFA) 90 mcg/actuation inhalerIndications :Bronchospasm,COVI D-19 virus infection Inhale 2 Puffs by mouth every 4 hours if needed for Wheezing 1st choice. 18 g 5 12/23/2021 Active acetaminophen SR (TYLENOL ARTHRITIS) 650 mg Extended-Release tablet Take 1,300 mg by mouth every 8 hours if needed (Pain). Max acetaminophen dose: 4000mg in 24 hrs. Active gabapentin (NEURONTIN) 300 mg capsuleIndications :Chronic pain syndrome TAKE ONE CAPSULE BY MOUTH AT BEDTIME 30 Capsule 11 04/22/2023 Active vit A/vit C/vit E/zinc/copper (PRESERVISION AREDS ORAL) Active citalopram (CELEXA) 40 mg tabletIndications: Depression, unspecified depression type Take 1 Tablet (40 mg) by mouth once daily. 90 Tablet 3 04/29/2023 Active omeprazole (PRILOSEC) 20 mg Delayed-Release capsuleIndications :Chronic GERD TAKE ONE CAPSULE BY MOUTH EVERY DAY BEFORE A MEAL . 90 Capsule 2 08/03/2023 Active ALPRAZolam (XANAX) 0.25 mg tabletIndications: Generalized anxiety disorder TAKE ONE TABLET BY MOUTH EVERY DAY NEEDED FOR PANIC AND ANXIETY 20 Tablet 10/11/2023 Active Active Problems Problem Noted Date Diagnosed Date Lymphedema 01/29/2023 Sepsis syndrome 11/15/2022 Hydronephrosis with urinary obstruction due to ureteral calculus 11/15/2022 Depression with anxiety 11/15/2022 HTN (hypertension) 11/15/2022 Class 1 obesity 11/15/2022 Acute pyelonephritis 11/15/2022 S/P total right hip arthroplasty 08/17/2022 Exudative age-related macula r degeneration of left eye with active choroidal neovascularization 03/18/2018 Hx of Malignant neoplasm of right female breast 04/12/2017 Perennial non-allergic rhinitis 04/07/2016 Mild major depression, single episode 01/28/2011 Anxiety 11/27/2007 Chronic rhinitis 06/21/2006 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 Encounter for screening colonoscopy MARISSA (obstructive sleep apnea) Resolved Problems Problem Noted Date Diagnosed Date Resolved Date Unspecified menopausal and p ostmenopausal disorder 06/28/2006 03/28/2015 Routine general medical exam ination at a health care facility 06/28/2006 09/05/2014 Overview (01/22/2010): Colonoscopy - Normal 12/20/06 DEXA - normal - Mammogram - 12/15 Pap - normal 01/15 Encounters Date Type Department Care Team Description 12/07/2023 Telephone [facility] [address] [place] [address] Amada Pedersen NP Results 12/03/2023 10:50 AM CDT Preop Visit [facility] [address] [place] [address] Amada Pedersen NP Preoperative Exam (Surg 12/09/23 Right shoulder arthroplasty; On License Of [facility]) 12/03/2023 Travel 12/01/2023 1:39 PM CDT - 12/01/2023 11:59 PM CDT Hospital Encounter [address] [address] Jany Marti MD Jacobs, Remedios Dobbins, OT 12/01/2023 Travel 11/26/2023 12:52 PM CDT - 11/26/2023 11:59 PM CDT Hospital Encounter [address] [place] [address] Jany Marti MD Jacobs, Katherine Marie, OT 11/26/2023 Travel 11/24/2023 1:37 PM CDT - 11/24/2023 11:59 PM CDT Hospital Encounter [address] [address] Jany Marti MD Jacobs, Remedios Dobbins, OT 11/24/2023 Travel 11/18/2023 12:48 PM CDT - 11/18/2023 11:59 PM CDT Hospital Encounter [address] [address] Jany Marti MD Jacobs, Katherine Marie, OT 11/18/2023 Travel 11/15/2023 Telephone [facility] [address] [facility] [place] [address] Amada Pedersen NP Appointment Request (Pre-Operative Exam ) 10/28/2023 12:47 PM CDT - 10/28/2023 11:59 PM CDT Hospital Encounter [address] [place] [address] Jany Marti MD Jacobs, Remedios Dobbins, OT 10/28/2023 Travel 10/26/2023 12:53 PM CDT - 10/26/2023 11:59 PM CDT Hospital Encounter [address] [place] [address] Jany Marti MD Jacobs, Remedios Dobbins, OT 10/26/2023 Travel 10/22/2023 12:53 PM CDT - 10/22/2023 11:59 PM CDT Hospital Encounter [address] [place] [address] Jany Marti MD Jacobs, Remedios Dobbins, OT 10/22/2023 Travel 10/20/2023 Telephone [facility] [address] [facility] [place] [address] Amada Pedersen NP Referral 10/19/2023 12:42 PM CDT - 10/19/2023 11:59 PM CDT Hospital Encounter [address] [place] [address] Jany Marti MD Jacobs, Remedios Dobbins, OT 10/19/2023 Travel 10/15/2023 12:26 PM CDT - 10/15/2023 11:59 PM CDT Hospital Encounter [address] [place] [address] Jany Marti MD Jacobs, Remedios Dobbins, OT 10/15/2023 Travel 10/12/2023 12:56 PM CDT - 10/12/2023 11:59 PM CDT Hospital Encounter [address] [place] [address] Jany Marti MD Jacobs, Remedios Dobbins, OT 10/12/2023 Travel 10/07/2023 12:06 PM CDT - 10/07/2023 11:59 PM CDT Hospital Encounter [address] [place] [address] Jany Marti MD Jacobs, Remedios Dobbins, OT 10/07/2023 Refill [facility] [address] [place] [address] Amada Pedersen NP Refill Request (Alprazolam) 10/07/2023 Travel 10/05/2023 12:06 PM CDT - 10/05/2023 11:59 PM CDT Hospital Encounter [address] [place] [address] Jany Marti MD Jacobs, Remedios Dobbins, OT 10/05/2023 Travel 10/01/2023 1:41 PM CDT - 10/01/2023 11:59 PM CDT Hospital Encounter [address] [place] [address] Jany Marti MD Jacobs, Remedios Dobbins, OT 10/01/2023 Travel 09/28/2023 1:09 PM CDT - 09/28/2023 11:59 PM CDT Hospital Encounter [address] [place] [address] Jany Marti MD Jacobs, Remedios Dobbins, OT 09/28/2023 Travel 09/15/2023 1:44 PM CDT - 09/15/2023 11:59 PM CDT Hospital Encounter [facility] [address] [address] Jany Marti MD Jacobs, Remedios Dobbins, OT 09/15/2023 Travel from Last 3 Months Immunizations Name Administration Dates Next Due COVID-19 vaccine ([employer] 30mcg/0.3mL) PF, MDV 12/09/2020,06/01/2020,05/11/2020 Influenza, IIV4 02/17/2018 Influenza, Inactivated AIIV4 (Age 65+ Years) Preserv Free 12/15/2020 Td, Preservative Free (age >= 7 Years) 7 Tdap 05/13/2019 Family History Medical History Relation Name Comments Stroke Father Cancer Mother Cervical Cancer-breast Sister Johana Bilateral Mast ectomies Heart Disease Son Pacer, Valve, Defibrillator Relation Name Status Comments Father Mother Sister Johana Son Social History Tobacco Use Types Packs/Day Years Used Date Smoking Tobacco: Never Smokeless Tobacco: Never Tobacco Cessation:Counseling Given: Yes Alcohol Use Standard Drinks/Week Comments Yes 0 (1 standard drink = 0.6 oz pur e alcohol) rarely PHQ-2 Answer Date Recorded PHQ-2 TOTAL SCORE 2 06/14/2023 Social Connections Answer Date Recorded Frequency of Communication with Friends and Fami ly 4 12/03/2023 Financial Resource Strain Answer Date R ecorded Difficulty of Paying Living Expenses 3 12/03/2023 Difficulty of Paying Living Expenses Not on file 12/03/2023 Food Insecurity Answer Date Recorded Worried About Running Out of Food in the Last Ye ar 1 12/03/2023 Transportation Needs Answer Date Record ed Lack of Transportation (Medical) 1 12/03/2023 Housing Stability Answer Date Recorded Unable to Pay for Housing in the Last Year 1 12/03/2023 Sex and Gender Information Value Date Recorded Sex Assigned at Not on file Gender Identity Not on file Sexual Orientation Not on file Obstetrics History Para Term AB IAB SAB Ectopic Multiple Livin g Live Births 4 3 3 0 1 1 2 Date Outcome GA Total Labor Labor/2nd/3rd Weight Sex Type Anes PTL Teena A1 A5 Name Clin Term Term Term SAB Last Filed Vital Signs Vital Sign Reading Time Taken Comments Blood Pressure 116/72 12/03/2023 11:07 AM CDT Pulse 88 12/03/2023 11:07 AM CDT Temperature 36.7 ??C (98 ??F) 04/14/2023 11:16 AM [facility] Respiratory Rate 14 12/03/2023 11:07 AM CDT Oxygen Saturation 99% 04/29/2023 10:49 AM [facility] Inhaled Oxygen Concentration - - Weight 89.8 kg (198 lb) 12/03/2023 11:07 AM CDT Height 166.4 cm (5' 5.5) 12/03/2023 11:07 AM CD T Body Mass Index 32.45 12/03/2023 11:07 AM CDT Plan of Treatment Upcoming Encounters Date Type Department Care Team (Late st Contact Info) Description 12/24/2023 2:30 PM CDT Appointment [address] [address] Remedios Young, OT [address] [place] [phone] 12/29/2023 1:45 PM CDT Appointment [address] [address] Remedios Young, OT [address] [place] [address] 12/31/2023 1:00 PM CDT Appointment [address] [address] Remedios Young, OT [address] [place] [phone] 01/05/2024 1:45 PM CDT Appointment [address] [address] Remedios Young, OT [address] [place] [address] 04/20/2024 11:00 AM [facility] Appointment [facility] [address] [facility] [place] [address] 04/26/2024 11:15 AM [facility] Office Visit [facility] [place] [facility] [address] [facility] [place] [phone] Dana Munguia, INDUSTRIAL MAINTENANCE TECHNICIAN [address] [place], [place] [id number] Health Maintenance Due Date Last Done Comments Zoster (shingles) series for age 50+ (1 of 2) 1998 Pneumococcal series for age 65+ (1 of 1 - PCV) 2013 Colonoscopy through age 75 05/20/2023 05/19/2018, RSV vaccine for adults or (1 - 1-dose 75+ series) 08/28/2023 COVID-19 vaccine series ( season) 2023 02/05/2022, 12/09/2020, 06/01/2020, Additional history exists Influenza for age 65+ 11/07/2023 12/15/2020, 018 Depression screening for age 12+ 06/13/2024 06/14/2023, 04/16/2022, 04/16/2022, Additional history exists Medicare Wellness for age 65+ 06/14/2024, 04/16/2022, 04/12/2020, Additional history exists BMI (ht and wt on same day) for age 18+ 12/02/2024 12/03/2023, 06/14/2023, 04/29/2023, Additional history exists Lipids for age 45-75 05/02/2026 05/02/2021, 04/06/2019, 04/05/2018, Additional history exists Tetanus booster 05/12/2029 05/13/2019, 10/29/2006 Tdap Completed 05/13/2019 Hepatitis C screening for ag e 18-79 Completed 05/02/2021 DEXA/DXA scan for age 65+ Completed 2022, 02/20/2020, 06/28/2017, Additional history exists Medical Devices Implanted Type Area Cupola Tender Helper Device Identifier Shelf Expiration Date Model / Serial / Lot Stent Uret [id number] Percuflex Hydroplus - [id number] Implanted:Qty: 1 on 11/15/2022 by Baldo Bear MD at [facility] Left: Ureter [facility] 07/30/2025 [id number] / / [id number] Stent Uret [id number] Percuflex Hydroplus - [id number] Implanted:Qty: 1 on 12/09/2022 by Bari Gage MD at [facility] Left: Ureter [facility] 07/30/2025 [id number] / / [id number] Procedures Procedure Name Priority Date/Time Associated Diagnosis Comments CBC WITH AUTO DIFFERENTIAL Routine 12/03/2023 12:16 PM CDT BASIC METABOLIC PANEL Routine 12/03/2023 12:16 PM CDT Pre-op exam Primary osteoarthritis of right shoulder XR DXA BONE DENSITY 2 SITES AXIAL Routine 04/16/2022 12:51 PM [facility] High risk medication use Malignant neoplasm of lower-outer quadrant of right breast of female, estrogen receptor positive (HC) ANTI HCV Routine 05/02/2021 9:40 AM [facility] Need for hepatitis C screening test LIPID PANEL W REFLEX MEASURED LDL Routine 05/02/2021 9:40 AM [facility] Lipid screening COLONOSCOPY 05/19/2018 7:48 AM CDT from Last 3 Months or Most Recently Relevant to Health Maintenance Results * CBC WITH AUTO DIFFERENTIAL (12/03/2023 12:16 PM CDT) WHITE BLOOD CELL COUNT 6.4 3.8 - 10.8 Thousand/u L [facility] RED BLOOD CELL COUNT 4.33 3.80 - 5.10 Million/uL [facility] HEMOGLOBIN 13.8 11.7 - 15.5 g/dL [facility] HEMATOCRIT 41.3 35.0 - 45.0 % [facility] MCV 95.4 80.0 - 100.0 fL [facility] MCH 31.9 27.0 - 33.0 pg [facility] MCHC 33.4 32.0 - 36.0 g/dL [facility] RDW 12.9 11.0 - 15.0 % [facility] PLATELET COUNT 275 140 - 400 Thousand/u L [facility] MPV 9.9 7.5 - 12.5 fL [facility] ABSOLUTE NEUTROPHILS 4,134 1,500 - 7,800 cells/uL [facility] ABSOLUTE LYMPHOCYTES 1,498 850 - 3,900 cells/uL [facility] ABSOLUTE MONOCYTES 499 200 - 950 cells/uL [facility] ABSOLUTE EOSINOPHILS 218 15 - 500 cells/uL [facility] ABSOLUTE BASOPHILS 51 0 - 200 cells/uL [facility] NEUTROPHILS 64.6 % [facility] LYMPHOCYTES 23.4 % [facility] MONOCYTES 7.8 % [facility] EOSINOPHILS 3.4 % [facility] BASOPHILS 0.8 % [facility] 12/03/2023 12:1 6 PM CDT 12/03/2023 12:17 PM CDT Amada Pedersen NP HEMATOLOGY [facility] [address] [place] [address], [facility] [address] [place] [address] * (ABNORMAL) BASIC METABOLIC PANEL (12/03/2023 12:16 PM CDT) [facility] GLUCOSE 102(H) 65 - 99 mg/dL [facility] Comment: ? Fasting reference interval For someone without known diabetes, a glucose value between 100 and 125 mg/dL is consistent with prediabetes and should be confirmed with a follow-up test. UREA NITROGEN (BUN) 21 7 - 25 mg/dL [facility] CREATININE 0.65 0.60 - 1.00 mg/dL [facility] EGFR 92 > OR = 60 mL/min/1. 73m2 [facility] BUN/CREATININE RATIO SEE NOTE: 6 - 22 (calc) [facility] Comment: ?? Not Reported: BUN and Creatinine are within ?? reference range. ? SODIUM 139 135 - 146 mmol/L [facility] POTASSIUM 4.4 3.5 - 5.3 mmol/L [facility] CHLORIDE 104 98 - 110 mmol/L [facility] CARBON DIOXIDE 27 20 - 32 mmol/L [facility] ELECTROLYTE BALANCE 8 7 - 17 mmol/L (calc) [facility] CALCIUM 9.7 8.6 - 10.4 mg/dL [facility] Blood BLOOD SPECIMEN / Unknown 12/03/2023 12:16 PM CDT 12/03/2023 12:17 PM CDT Amada Pedersen NP CHEMISTRY [facility] [address] [place] [address], [facility] [address] [place] [phone] * (ABNORMAL) XR DXA BONE DENSITY 2 SITES AXIAL (04/16/2022 12:51 PM [facility]) Anatomical Region Laterality Modality Spine, HIPS, HIPL, HIPR Computed Radiography Impressions 04/16/2022 1:34 PM [facility] Osteopenia. ??Lowest T-score -1.7. ??Bone density has decreased since 2019 but fracture risk is not elevated. RECOMMENDATIONS: The National Osteoporosis Foundation recommends pharmacologic treatment for patients with T-scores of -2.5 or less, patients with prior history of fragility fractures, or patients with 10-year probability of greater than 3% at hips or greater than 20% of suffering major osteoporotic fractures. Recommend continued optimization of calcium and vitamin D intake through dietary means and/or supplementation and regular exercise. Repeat scan recommended in 2 years. Narrative 04/16/2022 1:34 PM [facility] For Patients: Results are automatically released to your [employer] account once available, in compliance with federal regulations. This means that you may see your results before your provider has had a chance to review them. Please allow 2-3 business days for your provider to comment on the results. XR DXA Bone Mineral Density (BMD) EXAM LOCATION: [address] [address] PATIENT NAME: Marcy Cifuentes DATE OF : 1950 EXAM DATE: 04/16/2022 REQUESTING PROVIDER: Dana Munguia NP GENDER AT : female HEIGHT: 5' 5 (04/16/2022) WEIGHT: ??192 lb (04/16/2022) MENOPAUSAL STATUS: Postmenopausal RACE/ETHNICITY: White RISK FACTORS: ??breast cancer, on hormonal therapy for breast cancer CURRENT MEDICATION FOR BONE LOSS: NONE INDICATION: breast cancer, on aromatase inhibitor COMPARISON DATE(S): 2019 DXA scans are compared to prior studies for a patient only when the two (or more) studies were performed on the same scanner. It is not possible to compare data generated on one scanner to data from another because there are not standards in DXA equipment. This applies even if the two scanners are made by the same internet sales consultant. PROCEDURE: Dual-energy x-ray absorptiometry performed with routine technique. Reporting is completed in the form of a T-score. The T-score represents the standard deviation from peak bone mass based on young healthy adult. A Z-score is used for diagnosis in premenopausal women, and for men under the age of 50. FINDINGS: RESULT LUMBAR SPINE L1 - L4 BMD: 0.973 g/cm2 T-Score: - 1.7 Change from prior in 2020: ??Increase 0.8%. RESULTS FEMUR Left femoral neck BMD: 0.968 g/cm2 T-Score: - 0.5 Change from prior in 2020: ??Increase 7.2%. Right femoral neck BMD: 0.887 g/cm2 T-Score: - 1.1 Change from prior in 2020: ??Decrease 3.6%. Left hip BMD: 0.854 g/cm2 T-Score: - 1.2 Change from prior in 2020: ??Decrease 3.5%. Right hip BMD: 0.846 g/cm2 T-Score: - 1.3 Change from prior in 2020: ??Decrease 3.3%. WHO criteria: Normal: T-score at or above -1 SD Osteopenia: T-score between -1.1 and -2.4 SD Osteoporosis: T-score at or below -2.5 SD FRAX RISK CALCULATION (USED FOR OSTEOPENIA ONLY): 10-year probability of major osteoporotic fracture: 9.2%. 10-year probability of hip fracture: 1.3%. Dana Munguia NP DEXA * (ABNORMAL) LIPID PANEL W REFLEX MEASURED LDL (05/02/2021 9:40 AM [facility]) [facility] CHOLESTEROL,TOTAL 221(H) 100 - 199 mg/dL 05/02/2021 10:43 AM [facility] TRIGLYCERIDES 122 <150 mg/dL 05/02/2021 10:43 AM [facility] HDL CHOLESTEROL 59 >40 mg/dL 10:43 AM [facility] NON-HDL CHOLESTEROL 162(H) <145 mg/dl 05/02/2021 10:43 AM [facility] CHOL/HDL RATIO 3.75 <4.50 05/02/2021 10:43 AM [facility] LDL CHOLESTEROL 138(H) <=130 mg/dL 05/02/2021 10:43 AM [facility] VLDL CHOLESTEROL 24 <=30 mg/dL 05/02/2021 10:43 AM [facility] PROVIDER ORDERED STATUS RANDOM 05/02/2021 10:43 AM [facility] Blood BLOOD SPECIMEN / Unknown Venipuncture / Unknown 05/02/2021 9:40 AM [facility] 05/02/2021 9:42 AM [facility] Amada Pedersen NP CHEMISTRY [facility] [address] [place] [address] * ANTI HCV [36390.2] (05/02/2021 9:40 AM [facility]) HEPATITIS C ANTIBODY Non-React brenda Non-React brenda 05/02/2021 5:39 PM [facility] Comment:Antibodies to HCV no t detected; does not exclude the possibility of exposure to HCV. Blood BLOOD SPECIMEN / Unknown Venipuncture / Unknown 05/02/2021 9:40 AM [facility] 05/02/2021 9:42 AM [facility] Amada Pedersen INDUSTRIAL MAINTENANCE TECHNICIAN [facility] [address] [place] [address], [place] * COLONOSCOPY (05/19/2018 7:48 AM CDT) 05/19/2018 7:48 AM CDT Narrative Transcriptions Clarence Gamez MD - 05/19/2018 9:55 AM CDT Patient Name: Marcy Cifuentes Procedure Date: 05/19/2018 Gender: Female Date of : 1950 Admit Type: Ambulatory Procedure: Colonoscopy Proceduralist: Clarence [place] [facility] Indications/Pre-Op Diagnosis: Screening for colorectal malignantneoplasm Medications: Midazolam 4 mg IV, Fentanyl 100 microgramsIV Procedure Description: The patient had risks, benefits and alternatives explained to andgave informed consent. The patient had a stable cardiopulmonary status and judged an adequate candidate for conscious sedation. The colonoscope was passed through the anus and advanced to thececum, identified by appendiceal orifice and ileocecal valve. Thecolonoscopy was performed without difficulty. The patient tolerated the procedure well. The quality of the bowel preparation was adequate. Theileocecal valve, appendiceal orifice, and rectum were photographed. Complications: No immediate complications. Estimated Blood Loss & Specimen: Estimated blood loss: none. Specimen collected - Yes and sent to Laboratory Findings: The perianal and digital rectal examinations were normal. A 3 mm polyp was found in the cecum. The polyp was sessile. The polyp was removed with a jumbo cold forceps. Resection and retrieval were complete. A 5 mm polyp was found in the proximal ascending colon. The polyp was sessile. The polyp was removed with a hot snare. Resection andretrieval were complete. A few small-mouthed diverticula were found in the sigmoid colon. The retroflexed view of the distal rectum and anal verge was normaland showed no anal or rectal abnormalities. The exam was otherwise without abnormality. Impressions/Post-Op Diagnosis: - One 3 mm polyp in the cecum, removed with a jumbo cold forceps. Resected and retrieved. - One 5 mm polyp in the proximal ascending colon, removed with a hot snare. Resected and retrieved. - Diverticulosis in the sigmoid colon. - The examination was otherwise normal. Recommendation: - Discharge patient to home. - Resume previous diet. - Continue present medications. - Await pathology results. - Repeat colonoscopy in 5-10 years for surveillance. Moderate Sedation: Moderate (conscious) sedation was administered by the endoscopy nurse and supervised by the endoscopist. The following parameters were monitored: oxygen saturation, heart rate, respiratory rate, adequacyof pulmonary ventilation and reponse to care. Please refer to the patient's medical record flowsheets for moderate sedation details. Moderate (conscious) sedation was administered by the endoscopy nurse and supervised by the endoscopist. The patient's oxygen saturation, heart rate, blood pressure and response to care were monitored. Total physician intraservice time was 22 minutes. Clarence Gamez, 05/19/2018 9:55:21 AM This report has been signed electronically. Note Initiated On: 05/19/2018 7:48 AM Clarence Gamez MD PROCEDURE ORD from Last 3 Months or Most Recently Relevant to Health Maintenance Advance Directives Documents on File Type Date Recorded Patient Rn Transitional Care Expl anation Healthcare Directive 04/26/2022 023 * Full Code (Latest Code Status on File) Date Activated Date Inactivated Comments 12/09/2022 8:54 AM 12/09/2022 6:34 PM Should be di scussed pre operatively with anesthesia or surgeon Question Answer Comments Code Status Discussion: Not Discussed * DNR Date Activated Date Inactivated Comments 11/15/2022 10:32 PM 11/18/2022 4:48 PM Discussed w ith patient; daughter at bedside Question Answer Comments Code Status Discussion: Reviewed Preferences * Full Code Date Activated Date Inactivated Comments 11/15/2022 5:07 PM 11/15/2022 10:32 PM Should be d iscussed pre operatively with anesthesia or surgeon Question Answer Comments Code Status Discussion: Not Discussed Care Teams [employer] Relationship Specialty Start Date End Date Amada Pedersen NP [address] [place] [address] PCP - General Nurse Practitioner 02/11/18 María Cavanaugh MD [address] [place] [address] Oncology Oncology 12/14/19 Dana Munguia NP [address] [place] [address] Oncology Nurse Practitioner - Family 12/14/19
[2023-12-09] MEDS: SODIUM CHLORIDE 0.9 % (FLUSH) 10 ML SYRINGE IVF (07:00)
[2023-12-09] MEDS: ACETAMINOPHEN 500 MG TABLET 1000 MG PO (07:00)
[2023-12-09] MEDS: CELECOXIB 200 MG CAPSULE PO (07:00)
[2023-12-09] MEDS: LACTATED RINGERS 1000 ML 1,000 ML 100 ML IV (07:00)
[2023-12-09] MEDS: OXYCODONE (CR) 10 MG TAB.ER.12H PO (07:00)
[2023-12-09] MEDS: MIDAZOLAM HCL 1 MG/ML inj IVP (07:13)
[2023-12-09] MEDS: fentaNYL 100 MCG/2 ML inj IVP (07:13)
--- NOTE | 2023-12-09 07:29 | SUR.PREOP ---
TIME?OUT:?07 PT/RN/MDA?VERIFICATION?OF?SURGICAL?SITE,?PROCEDURE,?AND?CONSENT OBTAINED?PRIOR?TO?INVASIVE?PROCEDURE.
[2023-12-09] MEDS: CEFAZOLIN 2 GM INJ IVP (07:44)
[2023-12-09] MEDS: TRANEXAMIC ACID 100 MG/ML INJ 1000 MG IV (07:47)
--- NOTE | 2023-12-09 08:06 | SUR.OPER ---
PATIENT QUESTIONS ANSWERED SATISFACTORILY PREOPERATIVELY. PATIENT BROUGHT TO OR #2 PER CART FOLLOWING THE BLOCK. Patient positioned supine on OR #2 bed for the intubation.? Perioperative team wrapped the?left arm in a neutral position on the pt. abdomen with the drawsheet.? Right arm elevated on an IV pole in a padded strap. Final approval of positioning by surgeon.
--- NOTE | 2023-12-09 08:51 | W.PM.NB ---
Nerve Block Nerve Block Time Seen by Provider: 07:15 Date Seen: 12/09/23 Type of block requested by surgeon for post-operative analgesia: supraclavicular Side: right Time out performed: Yes Verification of patient name: Yes Verification of date of : Yes Site marking: site marked Name of person performing procedure: Huseyin Continuous monitoring Was continuous monitoring of O2 sat, B/P, equipment monitor phototypesetting, recorded every 15 minutes?: Yes Procedure Checklist: sterile prep, needles and gloves Ultrasound guided. Images saved: Yes Medications given in 5ml increments after negative aspiration: Ropivicaine %: 0.5 mL: 20 Needle gauge: 22 Precedex (mcg): 25 Patient tolerated procedure well: Yes Block Charges Block Charge (with Pro Fee): Brachial Plexus Use of Ultrasound Machine for Block: Yes- US Guidance/pain block
--- NOTE | 2023-12-09 08:51 | W.ANESCHARGE ---
Anesthesia Charges Start Date/Time Anesthesia Start Date: 12/09/23 Anesthesia Start Time: 07:20 Stop Date/Time Anesthesia Stop Date: 12/09/23 Anesthesia Stop Time: 09:51 Summary Extremes of Age - Over 70 or under 1: MDA
--- NOTE | 2023-12-09 09:11 | CRLHL7_ITS ---
For Patients: As a result of the Cures Act, medical imaging exams and procedure reports are released immediately into your electronic medical record. You may view this report before your referring provider. If you have questions, please contact your health care provider. Indication: RT TSA POST OP Technique: Two views right shoulder Findings/Impression: Hardware from a right shoulder arthroplasty is in satisfactory position. Bone alignment is normal. No sign of acute fracture. Postop changes are within normal limits. Dictated by Shane Pak MD @ 12/12/2023 9:08:45 PM (Electronically Signed)
--- NOTE | 2023-12-09 09:12 | PM.ORPRC ---
Procedure Note Date of procedure: 12/09/23 Procedure: PREOPERATIVE DIAGNOSIS: End-stage right shoulder glenohumeral joint osteoarthritis POSTOPERATIVE DIAGNOSIS: End-stage right shoulder glenohumeral joint osteoarthritis NAME OF OPERATION: Right upper extremity reverse shoulder arthroplasty, biceps tenodesis SURGEON: Kenneth Travis MD ORNAMENTAL RAIL INSTALLER: Silvia Nina PA-C, MEG Fitzgerald ANESTHESIA: General endotracheal ESTIMATED BLOOD LOSS: 125 mL COMPLICATIONS: None SPECIMENS: None DRAINS: None PREOPERATIVE ANTIBIOTICS: Ancef 2 grams IMPLANTS: 1. Tornier 29 mm standard base plate with a 9.5 mm x 35 mm central screw 2. 36mm standard glenosphere 3. 5B humeral stem 4. Low eccentric +0 humeral tray 5. 36mm +6 polyethylene INDICATIONS: The patient is a 73-year-old with a longstanding history of severe, unrelenting right shoulder pain secondary to end-stage osteoarthritis. Despite appropriate nonoperative management, including activity modification, anti-inflammatories, [id number] pain medication, physical therapy, and injections they continue to have pain and disability. Operative intervention was offered. The risks, benefits and expected outcomes were discussed in detail. These included but were not limited to: Infection, bleeding, injury to blood vessel or nerve, venous thromboembolism. All questions were answered to their satisfaction. Use of an assistant golf coach was necessary throughout the case for patient positioning and safety, soft tissue retraction, and closure. PROCEDURE: General anesthesia was administered. The patient was placed in the lazy beach chair position on the operating room table. The right upper extremity was prepped and draped in the usual sterile fashion. A standard deltopectoral incision was made. Subcutaneous dissection was taken with electrocautery to the deltopectoral interval. The cephalic vein was mobilized, lateral branches were cauterized. The vein was taken medially with the pectoralis. We bluntly entered the deltopectoral interval. We freed up the deltoid. The upper 1/3 of the insertion of the pectoralis was divided with cautery. The static retractor was placed. The clavipectoral fascia and CA ligament were divided. The circumflex vessels were controlled with electrocautery. The biceps was dissected out of the bicipital groove, was tagged with a #2 FiberWire suture and divided proximally. Two fiberWire sutures were placed in the subscapularis. The subscap was subperiosteally elevated off of the lesser tuberosity. The humeral head was delivered into the wound. The intramedullary humeral cutting guide was placed. We made the cut at the anatomic neck, in 30? of retroversion. Humeral sounds were used to assess the diameter of the canal. The broach was placed and had good rotational stability. The calcar reamer was used and the protective base plate cover was placed. Attention was then turned to the glenoid. Hohmann retractors were placed posteriorly. The labrum and biceps stump were sharply debrided. The origin of the inferior glenohumeral ligaments were subperiosteally released off of the glenoid. The drill guide was placed. The guide pin was placed in 0? of cephalic tilt. The reamer was used to bleeding bone. The central drill was used x2. The tap was used. The standard base plate was placed. This had excellent purchase. Locking screws x 2 were placed. The glenosphere was placed, the set screw was tightened. Attention then returned to the humerus. We placed a low eccentric standard base plate and standard poly. We reduced the shoulder and took it through a range of motion. It was found to be stable with appropriate soft tissue tension. Trial humeral components were removed. The biceps was tenodesed in the bicipital groove with drill holes and our previously placed FiberWire suture. We placed #2 FiberWire sutures in the lesser tuberosity for subsequent subscap repair. We assembled the humeral component on the back table. We placed it in the center of our subscapularis repair sutures and tapped it down to our humeral cut. This had excellent purchase. The shoulder was reduced and again was found to be stable with appropriate soft tissue tension. We did a 3 min dilute Betadine solution soak. We irrigated the wound with 3 L of normal saline via pulse lavage. We repaired the subscapularis to the lesser tuberosity with our previously placed FiberWire sutures. The deltopectoral interval was loosely reapproximated with an 0 Vicryl in an interrupted [id number] fashion. Subcutaneous tissues were closed with the 2-0 Vicryl and a running 3-0 Monocryl suture. The skin was sealed with glue. A dry dressing and sling were applied. Sponge and needle counts were correct x2. The patient tolerated the procedure well, there were no apparent complications. They were awakened and extubated in the operating room, taken to the postanesthesia care unit in satisfactory condition. PLAN: The patient will be mobilized with physical therapy. The sling will be used for 6 weeks postoperatively. Active range of motion in forward flexion and abduction as tolerates. No external rotation greater than 0? for 6 weeks postoperatively. They will be discharged to home once medically appropriate.
--- NOTE | 2023-12-09 09:58 | W.ANESCHARGE ---
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
--- NOTE | 2023-12-09 10:28 | SUR.PHASEI ---
patient met discharge criteria per anesthesia
== END 2023-12-09 14:13 | disposition home or self-care (01) ==
LOC: OR 06:04
PROVIDERS: PCP Nurse Practitioner Family; Visit Provider Orthopaedic Surgery
PROC: 0RRJ0JZ Replacement of Right Shoulder Joint with Synthetic Substitute, Open Approach (ICD-10-PCS; CPT 23472; principal; 2023-12-09 07:15)
DX: M19.011 Primary osteoarthritis, right shoulder (principal); G89.18 Other acute postprocedural pain
CPT/HCPCS: 23472; 23430; 01638; 64415; 73030; 76942; 97110; 97165; 97535; 99100; A9270; C1713; C1776; J0330; J0690; J1100; J2250; J2405; J2704; J2710; J2795; J3010; J7120; L3670